=== PATIENT | female | born 1980 | race Caucasian/White ===

== ENCOUNTER 2017-01-26 13:44 | Day surgery (SDC) | payer OTHER ==
[~2017-01-26] VITALS: Ht 152.4 cm; Wt 99.8 kg
[~2017-01-26 13:44] MED LIST: CALC60CR2 TP; CITA20TA PO; CLOB15CR3 TOP; KEN1O TOP; Sodium Chloride LOK Flush 10 mL Syringe IV PRN; TRAZ-115 PO; fentaNYL-PF 50 mCg/mL 2 mL Inj IVPUSH PRN
[2017-01-26 15:12] VITALS: BP 118/71; PULSE 80; RESP 16; O2SAT 95
[2017-01-26] MEDS: 0.9% Sodium Chloride 1,000 ML IV PRN ×2 (16:05→16:18)
[2017-01-26 16:29] VITALS: BP 135/70; PULSE 77; RESP 14; O2SAT 95
[2017-01-26 16:38] VITALS: BP 122/70; PULSE 73; RESP 14; O2SAT 96
[2017-01-26 16:48] VITALS: BP 124/60; PULSE 74; RESP 14; O2SAT 95
[2017-01-26 16:53] VITALS: BP 114/58; PULSE 71; RESP 14; O2SAT 95
--- NOTE | 2017-01-26 23:27 | ENDO ---
[address] [address] ENDOSCOPY PROCEDURE PATIENT: CUONG VALENZUELA : 1980 MR#: [id number] ADMIT: 01/26/2017 JOB ID: [id number] DATE OF PROCEDURE: 01/26/2017 PRIMARY PROVIDER: JOSE Hess PROCEDURE: Colonoscopy with cold forceps polypectomy. INDICATIONS: A 37-year-old female with two weeks of intermittent right lower quadrant crampy pain. She has not had any change in bowel habit. She did, however, have a CAT scan that was concerning for pathology in the cecum. The CT from January 09 revealed focal thickening of the cecum according to the report. Significance of the finding was unclear, but may be associated with early colitis. Of note, there was no pericolonic fat stranding or free fluid. Differential included neoplasm. The appendix was judged as normal. She had a small right adnexal cyst which was thought to be unlikely physiologic. Based on the CAT scan and her symptoms, colonoscopy was requested. EQUIPMENT: [id number]. SEDATION: 1. Versed 7 mg. 2. Fentanyl 175 mcg. COMPLICATIONS: None identified. BOWEL PREPARATION: Fair, adequate exam. PROCEDURE INFORMATION: After the risks and benefits were explained, written and verbal informed consent was obtained. The patient was brought into the endoscopy suite and placed into the left lateral decubitus position. Sedation was achieved using the above-stated medications with the addition of oxygen via nasal cannula. A digital rectal examination was accomplished. No pathology appreciated. The scope was introduced into the rectum and advanced under direct visualization to the cecum as identified by the appendiceal orifice and ileocecal valve. The terminal ileum was briefly interrogated. The scope was then slowly withdrawn to carefully examine the mucosa for any defects or lesions. Multiple direct views were made through the dentate line for exclusion of pathology. The colon was decompressed. The scope was removed from the patient who tolerated the procedure reasonably well. FINDINGS: No proctitis. No macroscopic colitis throughout. No inflammation seen in the right colon, nor cecum. I did not appreciate any mass lesions anywhere throughout the colon and we paid special attention to the area described on the CT. The terminal ileum was normal in appearance. In the rectosigmoid region, there were a couple of diminutive, probably hyperplastic polyps that were removed with cold forceps. These measured somewhere in the 2-3 mm each range. The source for the patient's symptoms was not identified at today's exam. ENDOSCOPIC DIAGNOSES: 1. Diminutive rectosigmoid polyps. 2. Otherwise visually unremarkable colonoscopy and terminal ileoscopy. RECOMMENDATIONS: 1. Await histopathology. 2. If adenomatous features are identified, repeat colonoscopy in five years' time. Otherwise, repeat colonoscopy at age 49 for colon cancer screening. 3. Follow up in GI clinic as needed. Continue with followup in primary care to pursue the source for discomfort. In that the colon appeared quite unremarkable, I wonder if this could conceivably be a [employer] source.
--- NOTE | 2017-01-28 11:00 | PATH ---
SURGICAL PATHOLOGY Attending Physician:Fred Samuels CASE STATUS: Signed Out PATIENT NAME: UCONG VALENZUELA PID: [id number] : 1980 DATE COLLECTED:01/26/2017 00:00 SPECIMEN: Colon, Biopsy CLINICAL HISTORY: 1). RECTAL SIGMOID COLON POLYPS X2 FINAL DIAGNOSIS: Rectosigmoid Colon Polyps: Hyperplastic polyps (2). ICD10 D12.6 GROSS DESCRIPTION: The specimen is received in one formalin filled container labeled with the patient's name, sublabeled "rectal sigmoid polyp" and consists of 2 extremely tiny portions of tissue which aggregate to 0.3 x 0.3 x 0.2 CM. The specimen is entirely submitted in one cassette. 01/27/2017 [facility] ICD-9 CODES: CPT CODES: 1: 88455 Electronically Signed Out Johny Lewis MD [facility] Pathology [facility] [address], [place] [address] Technical component performed at [facility], [address] [place] [address] Ave[address], [place], [address]
== END 2017-01-26 23:59 | disposition home or self-care (01) ==
LOC: END 13:44
PROVIDERS: ATTEND Internal Medicine Gastroenterology
DX: K63.5 Polyp of colon (principal); G47.00 Insomnia, unspecified; F41.8 Other specified anxiety disorders; E78.5 Hyperlipidemia, unspecified; G43.909 Migraine, unspecified, not intractable, without status migrainosus; L40.9 Psoriasis, unspecified
CPT/HCPCS: 45380; 99153; G0500; J7030

== ENCOUNTER 2017-06-28 17:53 | Emergency (ER) | payer OTHER ==
[~2017-06-28 17:53] MED LIST changes: -Sodium Chloride LOK Flush 10 mL Syringe IV PRN; -fentaNYL-PF 50 mCg/mL 2 mL Inj IVPUSH PRN
[2017-06-28 18:07] VITALS: BP 139/85; PULSE 84; RESP 20; O2SAT 98
[2017-06-28 18:29] LABS: APPEARANCE,URINE CLOUDY (CLEAR,HAZY); COLOR,URINE BLOODY (YELLOW); PH,URINE 6.5 (5.0-8.0)
[2017-06-28 18:30] LABS: OCCULT BLOOD,URINE LARGE (NEGATIVE)
--- NOTE | 2017-06-28 19:21 | ED.REPORT ---
HPI-General Illness Date of Service Jun 28, 2017 ED Provider: Hunter Mcneil MD A 37 year old female with a history of anxiety and kidney stones presents to the ED complaining of hematuria. The pt has been experiencing urinary frequency for several days and suspected that she may have a UTI. She then noticed significant hematuria and dysuria this morning. The pt denies fevers, chills, flank pain, back pain or vaginal bleeding. She states that this does not feel like a kidney stone. Nursing Notes Stated Complaint: PEEING BLOOD Chief Complaint: Female Abdominal Pain Nursing Notes Reviewed: Yes Allergies: Coded Allergies: No Known Allergies (Verified , 06/28/17) Scheduled Calcipotriene (Dovonex) 120 Gm Cream..g. 120 GM TP DAILY Citalopram Hydrobromide (Celexa) 20 Mg Tablet 20 MG PO DAILY Clobetasol Propionate/Emoll (Clobetasol Emollient 0.05% Crm) 15 Gm Cream..g. 1 APPL TOP BID Trazodone (Trazodone) 50 Mg Tablet 50 MG PO HS Triamcinolone Acet (Triamcinolone Acetonide Ointment) 1 Applic/0.25 Gm Oint 60 APPLIC TOP BID General Time Seen by MD: 18:19 Chief Complaint Other (Hematuria) Hx Obtained From: Patient Arrived By: Walk-in Sudden in Onset?: No Onset Occurred: 9 - 12 hours ago Symptom Duration: Since onset Recent Healthcare: No recent hospitalization, Recent doctor visit Similar Sx Previous: No Past Medical History Past Medical History anxiety kidney stones Past Surgical History foot kidney stones Reports: Cholecystectomy Reports: Carpal tunnel Smoking History Never Smoker Ambulatory Status Independent Review of Systems Full Review of Systems Constitutional: Denies: Chills, Fever Respiratory: Denies: Non-productive cough, Shortness of breath Cardiovascular: Denies: Chest pain GI: Denies: Abdominal pain, Nausea, Vomiting Female: Reports: Dysuria, Hematuria, Urinary frequency, Denies: Flank pain, Vaginal bleeding - abnl Musculoskeletal: Denies: Back pain, Neck pain Skin: Denies Rash Complete sys rev & neg: except as marked. Physical Exam Vital Signs Vital Signs Date Time Temp Pulse Resp B/P Pulse Ox O2 Delivery O2 Flow Rate FiO2 06/28/17 19:51 98 16 119/83 96 Room Air 06/28/17 18:07 36.9 84 20 139/85 98 Room Air Initial VS: Reviewed General/Constitutional: Awake, Alert Head / Eyes: Atraumatic, Normocephalic, PERRL, EOMI ENT: Atraumatic, Airway patent, Mucous membranes moist Neck: Atraumatic, Supple, Full range of motion Respiratory / Chest: Atraumatic, Breath sounds NL, Breath sounds = bilat, No respiratory distress Cardiovascular: Heart rate NL, Regular rhythm, Heart sounds NL, No gallop, No murmurs, No rubs Abdomen: Atraumatic, Soft, Non-tender Back: Atraumatic, Full range of motion no percussive flank tenderness Upper Extremities Upper Extremity / MS: Atraumatic, Full range of motion Lower Extremity / Pelvis / MS: Atraumatic, Full range of motion Skin: Atraumatic, Color NL, No rash, Warm, Dry Neurologic: Oriented X3, Speech NL, No motor deficits, No sensory deficits Psychiatric: Affect NL, Mood NL Interpretation & Diagnostics Lab Results Interpretation Test 06/28/17 18:07 Urine Color Bloody (YELLOW) Urine Appearance Cloudy (CLEAR,HAZY) Urine pH 6.5 (5.0-8.0) Urine Specific [place] 1.025 (1.003-1.035) Urine Protein 300mg/dL (NEG,TRACE) Urine Glucose (UA) 100mg/dL (NEGATIVE) Urine Ketones Tracemg/dL (NEGATIVE) Urine Occult Blood Large (NEGATIVE) Urine Nitrite Positive (NEGATIVE) Urine Bilirubin Negative (NEGATIVE) Urine Urobilinogen 1.0mg/dL (NORMAL) Urine Leukocyte Esterase Small (NEGATIVE) Urine RBC 11-50/hpf (0-2) Urine WBC 0-5/hpf (0-5) Urine Epithelial Cells None/hpf (NONE-MOD) Urine Crystals None seen (NONE SEEN) Urine Bacteria Few/hpf (NONE-FEW) Urine Hyaline Casts None/lpf (NONE) Urine Granular Casts None seen (NONE SEEN) Urine Waxy Casts None seen (NONE SEEN) Urine Red Blood Cell Casts None seen (NONE SEEN) Urine White Blood Cell Casts None seen (NONE SEEN) Urine Mucus None seen (None Seen) Urine Trichomonas None seen (NONE SEEN) Urine Yeast None (NONE SEEN) Urinalysis Comment None Urine Culture Reflexed Indicated Re-Eval/Medical Decision Med Decision/Clinical Course In summary, the patient is a 37-year-old female with a history of kidney stones who presents to emergency department complaining of hematuria, dysuria and urinary frequency for the last 2 days. Upon arrival she is afebrile, hemodynamically stable and in no apparent distress with reassuring examination. Urinalysis was obtained and was notable as below: Few bacteria No epithelial cells WBC 0-5 Small leukocyte esterase Positive nitrites Large blood Overall constellation of symptoms is most consistent with urinary tract infection. Presence of hematuria is somewhat atypical with UTI though may be secondary to cystitis due to infection. Patient reports that she has had no symptoms whatsoever of renal colic and is without any flank pain or abdominal pain. She states that this is not similar to previous kidney stones. At this time she is nontoxic in appearance, without flank tenderness or any signs of systemic illness/pyelonephritis. She is advised to take thousand. He urinary frequency and was provided with one dose here in the emergency room. She is being discharged with a course of ciprofloxacin for urinary tract infection. She has been advised to follow-up with urology for further workup of her hematuria. Prior to discharge follow-up and return precautions were reviewed in detail with the patient who verbalized understanding and agreement with the plan. The patient was discharged in stable condition. Time of Eval: 18:19 Patient Status: Condition improved Re-Evaluation/Progress Note: Pt informed of the diagnosis and plan for discharge during the initial interview. The diagnosis and plan for discharge are discussed. The pt understands and agrees with the plan. All questions are addressed at this time. Counseled Regarding: Diagnosis, Lab results, Need for follow-up, When/why to return to ED Discharge & Departure Primary Impression: UTI (urinary tract infection) Urinary tract infection type: site unspecified Hematuria presence: with hematuria Qualified Code: N39.0 - Urinary tract infection, site not specified Additional Impressions: Hematuria History of kidney stones Urinary frequency Dysuria Disposition: Home Discharge Condition All VS Reviewed: Yes Condition: Stable Patient Instructions: Urinary Tract Infection in Women (ED) Additional Instructions: Thank you for seeking care at the emergency room. It is difficult for us to make definitive diagnoses in the ED but we believe that you are experiencing a urinary tract infection. Our primary goal today in the Emergency Department was to evaluate you for any life-threatening conditions. Your evaluation was reassuring. You will be discharged with a prescription for Ciprofloxacin. Please buy over the counter phenazopyridine (Azo). You should follow-up with your primary doctor in the next week. Follow up with urology if your symptoms persist. You should return to the Emergency Department immediately if you develop fevers , chills, worsening symptoms, vomiting, or any other concerning signs or symptoms. Thank you for letting us partake in your care today. Referrals: Mimi Franklin (PCP) Scribe Attestation Portions of this note were transcribed by Luis Fernando Sims. I, Dr. Mcneil personally performed the history, physical exam and medical decision-making; I reviewed and confirmed the accuracy of the information in the transcribed note. copies to: Mimi Franklin Beck O MD Jun 28, 2017 19:21 LUIS FERNANDO SIMS Jun 28, 2017 19:29
[2017-06-28] MEDS ORDERED: Phenazopyridine 97.5 mg Tablet PO ONE (19:30)
[2017-06-28 19:51] VITALS: BP 119/83; PULSE 98; RESP 16; O2SAT 96
[2017-06-28] MEDS ORDERED: _Ciprofloxacin 500 mg Tablet PO SCH (20:30)
== END 2017-06-28 20:00 | disposition home or self-care (01) ==
LOC: SED 17:53
DX: N39.0 Urinary tract infection, site not specified (principal); F41.9 Anxiety disorder, unspecified; Z90.49 Acquired absence of other specified parts of digestive tract; Z87.442 Personal history of urinary calculi